=== PATIENT | female | born 1980 | race Caucasian/White ===

== ENCOUNTER 2020-02-07 09:02 | Outpatient (CLI) | payer BC ==
[2020-02-07 09:24] LABS: BASOPHILS # (AUTO) 0.1 10^3/uL (0.0-0.1); BASOPHILS % (AUTO) 0.9 %; EOSINOPHILS # (AUTO) 0.1 10^3/uL (0.0-0.7); EOSINOPHILS % (AUTO) 1.9 %; HGB - HEMOGLOBIN 13.4 g/dL (12.0-16.0); LYMPHOCYTES # (AUTO) 1.3 10^3/uL (1.5-3.5); LYMPHOCYTES % (AUTO) 24.9 %; MEAN CORPUSCULAR HEMOGLOBIN 30.7 pg (27.0-31.0); MEAN CORPUSCULAR HGB CONC 33.1 g/dL (32.0-36.0); MEAN CORPUSCULAR VOLUME 92.9 fL (81.0-99.0); MEAN PLATELET VOLUME 10.4 fL (7.9-10.8); MONOCYTES # (AUTO) 0.4 10^3/uL (0.0-1.0); MONOCYTES % (AUTO) 6.7 %; NEUTROPHILS # (AUTO) 3.5 10^3/uL (1.5-6.6); NEUTROPHILS % (AUTO) 65.4 %; PLT - PLATELET COUNT 273 10^3/uL (130-450); RED BLOOD COUNT 4.36 10^6/uL (4.20-5.40); RED CELL DISTRIBUTION WIDTH 12.6 % (12.0-15.0); WHITE BLOOD COUNT 5.4 x10^3/uL (4.8-10.8)
--- NOTE | 2020-02-07 09:50 | XRAY Report ---
PROCEDURE: Hand 2 View BILAT INDICATIONS: LAB,JOINT PAIN,HAND TECHNIQUE: 2 views of the hand(s) bilaterally were acquired. COMPARISON: None. FINDINGS: Bones: No fractures or dislocations. No suspicious bony lesions. Soft tissues: No suspicious soft tissue calcifications. IMPRESSION: No trauma found. No appreciable degenerative osteoarthritis or erosive arthritides is found. Reviewed by: Edgar Montgomery MD on 02/07/2020 9:49 AM PDT Approved by: Edgar Montgomery MD on 02/07/2020 9:49 AM PDT Station ID: [id number]
[2020-02-07 12:01] LABS: HEMOGLOBIN A1c% 5.4 % (4.27-6.07)
[2020-02-07 16:57] LABS: RHEUMATOID FACTOR NEGATIVE (Negative)
== END 2020-02-07 09:03 | disposition home or self-care (01) ==
LOC: LAB 09:02 → DI 09:03
PROVIDERS: ATTEND Physician Assistant
DX: M79.642 Pain in left hand (principal); M79.641 Pain in right hand; E55.9 Vitamin D deficiency, unspecified; R53.83 Other fatigue; Z86.32 Personal history of gestational diabetes
CPT/HCPCS: 36415; 82306; 83036; 84443; 85025; 85651; 86038; 86430

== ENCOUNTER 2021-03-11 08:56 | Outpatient (CLI) | payer OTHER ==
[2021-03-11 09:15] LABS: BASOPHILS # (AUTO) 0.1 10^3/uL (0.0-0.1); EOSINOPHILS # (AUTO) 0.2 10^3/uL (0.0-0.7); EOSINOPHILS % (AUTO) 2.9 %; HCT - HEMATOCRIT 40.8 % (37.0-47.0); HGB - HEMOGLOBIN 13.6 g/dL (12.0-16.0); LYMPHOCYTES # (AUTO) 1.6 10^3/uL (1.5-3.5); MEAN CORPUSCULAR HEMOGLOBIN 30.9 pg (27.0-31.0); MEAN CORPUSCULAR HGB CONC 33.3 g/dL (32.0-36.0); MEAN CORPUSCULAR VOLUME 92.7 fL (81.0-99.0); MEAN PLATELET VOLUME 9.9 fL (7.9-10.8); MONOCYTES # (AUTO) 0.4 10^3/uL (0.0-1.0); MONOCYTES % (AUTO) 6.9 %; NEUTROPHILS # (AUTO) 3.1 10^3/uL (1.5-6.6); NEUTROPHILS % (AUTO) 58.8 %; PLT - PLATELET COUNT 272 10^3/uL (130-450); RED CELL DISTRIBUTION WIDTH 12.6 % (12.0-15.0); WHITE BLOOD COUNT 5.2 x10^3/uL (4.8-10.8)
[2021-03-11 09:39] LABS: ALBUMIN 4.3 g/dL (3.2-5.5); ALBUMIN/GLOBULIN RATIO 1.4 (1.0-2.2); ALKALINE PHOSPHATASE 56 IU/L (42-121); ALT ALANINE AMINOTRANSFERASE 20 IU/L (10-60); AST ASPARTATE AMINOTRANSFERASE 14 IU/L (10-42); BUN - BLOOD UREA NITROGEN 15 mg/dL (6-20); CALCIUM 9.2 mg/dL (8.5-10.3); CARBON DIOXIDE - CO2 28 mmol/L (21-32); CHLORIDE 102 mmol/L (101-111); CHOL/HDL RATIO 3.8 (<4.4); CHOLESTEROL 218 mg/dL; CREATININE 0.7 mg/dL (0.4-1.0); GFR - MDRD 93 (>89); GLUCOSE 114 mg/dL (70-100); HDL CHOLESTEROL 57 mg/dL; LDL CHOLESTEROL,CALCULATED 137 mg/dL; LDL/HDL RATIO 2.4 (<4.4); POTASSIUM 4.1 mmol/L (3.5-5.0); SODIUM 140 mmol/L (135-145); TOTAL PROTEIN 7.3 g/dL (6.7-8.2); TRIGLYCERIDES 118 mg/dL; VLDL CHOLESTEROL 24 mg/dL
[2021-03-11 09:51] LABS: THYROID STIMULATING HORMONE 1.2 uIU/mL (0.34-5.60)
== END 2021-03-11 08:57 | disposition home or self-care (01) ==
LOC: LAB 08:56
PROVIDERS: ATTEND Physician Assistant Medical
DX: Z00.00 Encounter for general adult medical examination without abnormal findings (principal)
CPT/HCPCS: 36415; 80053; 80061; 83721; 84443; 85025

== ENCOUNTER 2021-04-14 09:56 | Outpatient (CLI) | payer OTHER | END 2021-04-14 09:57 | disposition critical access hospital (66) | LOC: EMS 09:56 | DX: S99.912A Unspecified injury of left ankle, initial encounter (principal); S99.911A Unspecified injury of right ankle, initial encounter; W10.9XXA Fall (on) (from) unspecified stairs and steps, initial encounter; Y93.89 Activity, other specified; Y92.009 Unspecified place in unspecified non-institutional (private) residence as the place of occurrence of the external cause | CPT/HCPCS: A0425; A0427 ==

== ENCOUNTER 2021-04-14 10:10 | Emergency (ER) | payer OTHER ==
[2021-04-14] MEDS ORDERED: KETOROLAC 30 MG/ML VIAL IVP STA (10:28)
[2021-04-14] MEDS ORDERED: HYDROmorphone 1 MG/ML CARPUJECT IVP STA (10:28)
[2021-04-14] MEDS ORDERED: SODIUM CHLORIDE 0.9% 1,000 ML IV STA (10:28)
--- NOTE | 2021-04-14 10:29 | ED Physician Documentation ---
PD HPI LOWER EXT INJURY - Stated complaint Stated Complaint: ANKLE INJURY - Chief complaint Chief Complaint: Trauma Ext - History obtained from History obtained from: Patient, EMS - History of Present Illness PD HPI LOW EXT INJURY LOCATION: Right, Left, Ankle Type of injury: Twist (of right ankle as going down stairs. right ankle gave out and she then stepped hard to left ankle to catch herself, feeling twist and crack of left ankle. Unable to move it nor attempt standing due to marked pain.) Where injury occurred: Home Timing - onset: How many minutes ago (30) Timing - details: Abrupt onset, Still present Worsened by: Moving, Palpating Associated symptoms: Swelling (around left ankle mainly. Minimally anterolateral proximal foot on right.). No: Weakness, Numbness Contributing factors: No: Prior ortho surgery Similar symptoms before: Has not had sx before Recently seen: Not recently seen Review of Systems Constitutional: reports: Other (last meal last evening; had sips of cider this morning.). denies: Fever, Chills Nose: denies: Rhinorrhea / runny nose, Congestion Throat: denies: Sore throat Cardiac: denies: Chest pain / pressure Respiratory: denies: Cough GI: denies: Abdominal Pain Skin: denies: Abrasion (s), Laceration (s) Musculoskeletal: denies: Neck pain, Back pain Neurologic: denies: Altered mental status, Headache, Head injury PD PAST MEDICAL HISTORY - Past Medical History Cardiovascular: None Respiratory: None Neuro: None Musculoskeletal: None - Present Medications Home Medications: Ambulatory Orders Medication Instructions Recorded Confirmed HYDROcod/ACETAM 5/325 [Loyall 5/325] 1 ea PO Q6H PRN #18 tablet 04/14/21 Ibuprofen [Motrin] 600 mg PO TID PRN #25 tab 04/14/21 - Allergies Allergies/Adverse Reactions: Allergies Allergy/AdvReac Type Severity Reaction Status Date / Time Sulfa (Sulfonamide Allergy Rash Verified 04/14/21 10:22 Antibiotics) PD ED PE NORMAL - Vitals Vital signs reviewed: Yes - General General: Alert and oriented X 3, Well developed/nourished, Other (appears in considerable pain from left ankle mainly. Both ankles are in vacuum splints. ) - HEENT HEENT: Atraumatic, Dentition benign, Other (able to open mouth widely. ) - Neck Neck: Supple, no meningeal sign, No bony TTP - Cardiac Cardiac: RRR, No murmur - Respiratory Respiratory: Clear bilaterally, Other (no chestwall tenderness. ) - Abdomen Abdomen: Soft, Non tender - Back Back: No CVA TTP, No spinal TTP - Derm Derm: Normal color, Warm and dry - Extremities Extremities: Other (right ankle with some swelling and mild bruising anterolateral proximal foot c/w ATFL ligament. No gross laxity with inversion stress. Malleoli not tender. Left ankle with deformity and swelling at ankle. Tender both sides. Foot is pointed laterally compared to knee direction. Palpable DP pulse.) - Neuro Neuro: Alert and oriented X 3, No motor deficit, No sensory deficit, Normal speech, Other (good cap refill in toes. ) Results - Vitals Vitals: Vital Signs - 24 hr 04/14/21 04/14/21 04/14/21 10:11 10:36 10:39 Temperature 36.9 C Heart Rate 86 92 93 Respiratory 16 18 22 Rate Blood Pressure 138/95 H 127/73 127/73 O2 Saturation 98 94 99 04/14/21 04/14/21 04/14/21 11:19 11:25 11:29 Temperature Heart Rate 85 97 87 Respiratory 13 14 Rate Blood Pressure 145/80 H O2 Saturation 100 04/14/21 04/14/21 04/14/21 11:30 11:34 11:41 Temperature Heart Rate 92 78 74 Respiratory 15 16 15 Rate Blood Pressure 154/82 H 126/65 124/75 O2 Saturation 100 98 98 04/14/21 04/14/21 04/14/21 11:52 11:56 12:02 Temperature Heart Rate 81 82 89 Respiratory 13 9 L 13 Rate Blood Pressure 124/75 129/71 118/70 O2 Saturation 100 98 99 04/14/21 04/14/21 12:16 12:33 Temperature Heart Rate 85 95 Respiratory 17 16 Rate Blood Pressure 118/70 136/79 H O2 Saturation 100 Oxygen O2 Source Room air - Rads (name of study) right ankle Radiology: Prelim report reviewed ( no fractures), See rad report left ankle Radiology: Prelim report reviewed (distal fibular and medial malleolar fractures with posterolateral dislocation. ), See rad report Procedures - Splint (location) left ankle Splint applied by: Physician Type of splint: Fiberglass, Posterior, Stirrup Other: Patient tolerated well, No complications, Neurovascular intact, Good alignment, Crutches provided - Reduction Body part reduced: Left, Ankle Fracture or dislocation: Fracture dislocation Anesthesia: Dilaudid, Other (sedation with propfol) Reduction aftercare: NV intact, Xray confirms reduction, Alignment improved, Splint applied, Crutches, Patient tolerated well - Procedural sedation Sedation prep: Informed consent, Time out completed, Last meal (last evening), PE performed, ASA 1 - healthy, IV O2 monitor, ET CO2 monitor, RT present Sedation Medications: propofol Mallampati classification: I Patient status during sedation: Responds to tactile Sedation recovery: Recovered uneventfully, Back to baseline Time in sedation (Minutes): 12 PD MEDICAL DECISION MAKING - ED course Complexity details: reviewed results, re-evaluated patient (she is feeling so much better with ankle reduced and splinted. ), considered differential (right ankle seems sprain. Left ankle obvious fracture/dislocation. Provided IV pain meds pending xray and set up for procedural sedation. ), d/w patient Departure - Departure Disposition: 01 Home, Self Care Clinical Impression: Right ankle sprain Qualifiers: Encounter type: initial encounter Involved ligament of ankle: anterior talofibular ligament Qualified Code(s): S93.491A - Sprain of other ligament of right ankle, initial encounter Closed bimalleolar fracture of left ankle Qualifiers: Encounter type: initial encounter Qualified Code(s): S82.842A - Displaced bimalleolar fracture of left lower leg, initial encounter for closed fracture Condition: Stable Record reviewed to determine appropriate education?: Yes Instructions: ED Fx Ankle General Follow-Up: Albert Polk MD [Provider Admit Priv/Credential] - Flores Lee PA-C [Primary Care Provider] - Prescriptions: Ibuprofen [Motrin] 600 mg PO TID PRN #25 tab PRN Reason: Pain HYDROcod/ACETAM 5/325 [Loyall 5/325] 1 ea PO Q6H PRN #18 tablet PRN Reason: Pain Comments: Use the Aircast for support of the right ankle to protect the ligaments that you sprained. You will need to be on it some since you will be able to weight-bear on the left ankle and leg due to the fractures. Keep the splint in place. Ice elevate and rest the left ankle to reduce swelling. Call the orthopedic office tomorrow for a follow-up appointment the end of this week or early next week for reevaluation of the bimalleolar fracture. This may need surgical stabilization beyond just the splint or cast. You need to discuss this with the orthopedist. Typically they will do this for this type of fracture after the swelling is gone down. Use ibuprofen 3 times a day with food for inflammation and pain. Add Tylenol every 4-6 hours if needed for pain or hydrocodone if needed for worse pain. Crutches for nonweightbearing of the left ankle. Consider picking up a knee scooter as a alternative way for getting around with less use of the hands and wrists. Obviously you need crutches for stairs etc. I transmitted your prescription to [facility] pharmacy in [place]. I am prescribing a short course of narcotic pain medication for you. These are potentially dangerous and addictive medications that should be used carefully. These medications may constipate you. Take an [id number]-ges-[id number] stool softener such as docusate twice daily with plenty of water while taking these medications. If you go 24 hours without a bowel movement, take fdnp-vam-ichhbvt MiraLAX, per package instructions. Do not drink or drive while taking these medications. If you received narcotic or sedating medications while in the emergency department do not drive for 24 hours. Store this medication in a safe, secure place and out of reach of children. It is a violation of federal law to give or sell this medication to another person or to use in a manner other than prescribed. The ED will not refill narcotic prescriptions, including prescriptions lost or stolen. You can dispose of unwanted medications at the [facility]'s office or at several pharmacies such as [facility]. Discharge Date/Time: 04/14/21 12:54
[2021-04-14] MEDS ORDERED: PROPOFOL 200 MG/20 ML VIAL IVP STA (11:07)
[2021-04-14] MEDS ORDERED: HYDROmorphone 0.5 MG/0.5 ML SYRINGE IVP STA (11:07)
--- NOTE | 2021-04-14 11:24 | XRAY Report ---
PROCEDURE: Ankle 3 View BILAT INDICATIONS: injury both ankles, left worse than right TECHNIQUE: 3 views of the ankle were acquired. COMPARISON: None FINDINGS: Bones: No fractures or dislocations. Ankle mortise is normally aligned. No suspicious bony lesions . Soft tissues: No tibiotalar joint effusion. Achilles tendon appears normal. IMPRESSION: No acute fracture. No osseous lesion. If symptoms and/or clinical suspicion for patholog y continue, further assessment with repeat plain films, or advanced imaging (e.g., CT, MRI, or bone s can) is recommended for further assessment. Reviewed by: Josie Valadez MD on 04/14/2021 10:23 AM [facility] Approved by: Josie Valadez MD on 04/14/2021 10:23 AM [facility] Station ID: [id number]
--- NOTE | 2021-04-14 12:00 | XRAY Report ---
PROCEDURE: Ankle 2 View LT INDICATIONS: post reduction TECHNIQUE: 2 views of the ankle were acquired. COMPARISON: 04/14/2021 plain films FINDINGS: Bones: There has been reduction of the previously seen trimalleolar left ankle fracture dislocation. No suspicious bony lesions. Soft tissues: No tibiotalar joint effusion. Achilles tendon appears normal. IMPRESSION: Reduction of ankle fracture dislocation. Reviewed by: Josie Valadez MD on 04/14/2021 10:58 AM [facility] Approved by: Josie Valadez MD on 04/14/2021 10:58 AM [facility] Station ID: [id number]
[2021-04-14 12:34] VITALS: BP 136/79
== END 2021-04-14 12:54 | disposition home or self-care (01) ==
LOC: EDUNIT# → ED 10:10
DX: S82.842A Displaced bimalleolar fracture of left lower leg, initial encounter for closed fracture (principal); S93.491A Sprain of other ligament of right ankle, initial encounter; W10.9XXA Fall (on) (from) unspecified stairs and steps, initial encounter; X50.1XXA Overexertion from prolonged static or awkward postures, initial encounter; Y93.89 Activity, other specified; Y92.009 Unspecified place in unspecified non-institutional (private) residence as the place of occurrence of the external cause
CPT/HCPCS: 27810; 73600; 73610; 96374; 96375; 96376; 99152; 99284; 99285; J1170; 94770

== ENCOUNTER 2021-10-30 08:00 | Outpatient (CLI) | payer OTHER | END 2021-10-30 23:59 | disposition home or self-care (01) | LOC: LAB.N 08:00 | PROVIDERS: ATTEND Physician Assistant Medical | DX: J20.9 Acute bronchitis, unspecified (principal); Z20.822 Contact with and (suspected) exposure to COVID-19 ==

== ENCOUNTER 2023-05-27 07:37 | Outpatient (CLI) | payer OTHER ==
[2023-05-27 08:11] LABS: BASOPHILS # (AUTO) 0.1 10^3/uL (0.0-0.1); BASOPHILS % (AUTO) 0.9 %; EOSINOPHILS # (AUTO) 0.1 10^3/uL (0.0-0.7); EOSINOPHILS % (AUTO) 2.1 %; HCT - HEMATOCRIT 42.2 % (37.0-47.0); HGB - HEMOGLOBIN 13.7 g/dL (12.0-16.0); LYMPHOCYTES # (AUTO) 1.6 10^3/uL (1.5-3.5); LYMPHOCYTES % (AUTO) 28.9 %; MEAN CORPUSCULAR HEMOGLOBIN 29.4 pg (27.0-31.0); MEAN CORPUSCULAR HGB CONC 32.5 g/dL (32.0-36.0); MEAN CORPUSCULAR VOLUME 90.6 fL (81.0-99.0); MEAN PLATELET VOLUME 10.2 fL (7.9-10.8); MONOCYTES # (AUTO) 0.4 10^3/uL (0.0-1.0); MONOCYTES % (AUTO) 6.2 %; NEUTROPHILS # (AUTO) 3.5 10^3/uL (1.5-6.6); NEUTROPHILS % (AUTO) 61.7 %; PLT - PLATELET COUNT 317 10^3/uL (130-450); RED BLOOD COUNT 4.66 10^6/uL (4.20-5.40); RED CELL DISTRIBUTION WIDTH 12.6 % (12.0-15.0); WHITE BLOOD COUNT 5.6 x10^3/uL (4.8-10.8)
[2023-05-27 08:24] LABS: ALBUMIN 4.5 g/dL (3.2-5.5); ALBUMIN/GLOBULIN RATIO 1.4 (1.0-2.2); ALKALINE PHOSPHATASE 52 IU/L (42-121); ALT ALANINE AMINOTRANSFERASE 11 IU/L (10-60); AST ASPARTATE AMINOTRANSFERASE 10 IU/L (10-42); BUN - BLOOD UREA NITROGEN 14 mg/dL (6-20); CALCIUM 9.3 mg/dL (8.5-10.3); CARBON DIOXIDE - CO2 28 mmol/L (21-32); CHLORIDE 102 mmol/L (101-111); CHOL/HDL RATIO 4.3 (<4.4); CHOLESTEROL 213 mg/dL; CREATININE 0.7 mg/dL (0.6-1.3); CRP - C-REACTIVE PROTEIN < 0.5 mg/dL (<0.5); GFR - MDRD 92 (>89); GLUCOSE 111 mg/dL (74-104); HDL CHOLESTEROL 49 mg/dL; LDL CHOLESTEROL,CALCULATED 133 mg/dL; LDL/HDL RATIO 2.7 (<4.4); POTASSIUM 3.7 mmol/L (3.5-4.5); SODIUM 137 mmol/L (135-145); TOTAL PROTEIN 7.7 g/dL (6.4-8.9); TRIGLYCERIDES 157 mg/dL (48-352); VLDL CHOLESTEROL 31 mg/dL
[2023-05-27 08:40] LABS: THYROID STIMULATING HORMONE 2.19 uIU/mL (0.34-5.60)
[2023-05-27 09:01] LABS: RHEUMATOID FACTOR NEGATIVE (Negative)
[2023-05-28 07:10] LABS: VITAMIN D 25-HYDROXY 65.7 ng/mL (30.0-100.0)
[2023-05-28 18:08] LABS: ANTI-DNA (DS) AB QN 1 IU/mL (0-9); ENDOMYSIAL IGA Negative (Negative)
[2023-05-28 22:08] LABS: T-TRANSGLUTAMINASE (TTG) IGG <2 U/mL (0-5)
[2023-05-29 16:18] LABS: ANTINUCLEAR ANTIBODIES IFA Positive (.)
== END 2023-05-27 07:38 | disposition home or self-care (01) ==
LOC: LAB 07:37
PROVIDERS: ATTEND Physician Assistant Medical
DX: Z00.00 Encounter for general adult medical examination without abnormal findings (principal); E55.9 Vitamin D deficiency, unspecified; R53.83 Other fatigue; K52.9 Noninfective gastroenteritis and colitis, unspecified; M25.50 Pain in unspecified joint
CPT/HCPCS: 36415; 80053; 80061; 82306; 82607; 83721; 84443; 85025; 85651; 86038; 86140; 86225; 86231; 86364; 86430

== ENCOUNTER 2023-12-18 10:29 | Outpatient (CLI) | payer OTHER ==
--- NOTE | 2023-12-21 08:27 | Ultrasound Report ---
LIMITED ULTRASOUND OF RIGHT BREAST AND AXILLA: 12/18/2023 CLINICAL: Palpable right breast lump. Comparison is made to exam dated: 12/18/2023 mammogram - [facility]. Color flow ultrasound of the right breast 9-10 o'clock, and axilla regions was performed. Casas scale images of the real-time examination were reviewed. There is a 2 cm x 3.1 cm x 2.4 cm irregular mass with a spiculated margin in the right breast at 9 o' clock middle depth 7 cm from the nipple. This irregular mass is hypoechoic with posterior acoustic s hadowing. This correlates as palpated, to the reported pain, and with mammography findings. There a re related calcifications. Color flow imaging demonstrates that there is vascularity present. There also is a 2 cm x 2.5 cm x 1.7 cm irregular mass with an angular margin in the right breast at 1 0 o'clock middle depth 2 cm from the nipple. This irregular mass is hypoechoic with posterior acoust ic shadowing. This correlates with mammography findings. Color flow imaging demonstrates that there is no vascularity present. This mass may be continuous with the 9 o'clock mass. Additionally, there is a 0.5 cm x 1.5 cm lymph node with eccentric cortical thickening in the right a xillary tail 12 cm from the nipple. IMPRESSION: HIGHLY SUGGESTIVE OF MALIGNANCY The 2 cm x 3.1 cm x 2.4 cm irregular mass in the right breast at 9 o'clock middle depth is highly sug gestive of malignancy. An ultrasound guided biopsy is recommended. The 2 cm x 2.5 cm x 1.7 cm irregular mass in the right breast at 10 o'clock middle depth is highly victoria ggestive of malignancy. This mass may be continuous with the 9 o'clock mass. An ultrasound guided bi opsy is recommended. The 0.5 cm x 1.5 cm lymph node with eccentric cortical thickening in the right axillary tail is suspi cious of malignancy. An ultrasound guided biopsy is recommended. The findings and recommendations were discussed with the patient in person at the time of the exam. If biopsies are positive, consider breast MRI to evaluate the extent of disease. This exam was interpreted at Station ID: [id number]. Electronically Signed By: Dakotah Cruz M.D. ar/:12/18/2023 21:00:30 Ultrasound BI-RADS: 5 Highly suggestive of malignancy BI-RADS CATEGORY: (5) - 5 Biopsy [id number] Immediate follow-up LATERALITY: (R)
--- NOTE | 2023-12-21 08:27 | Mammography Report ---
BILATERAL DIGITAL DIAGNOSTIC MAMMOGRAM 3D/2D WITH SPOT COMPRESSION: 12/18/2023 CLINICAL: Baseline exam. Palpable right breast lump. No prior exams were available for comparison. Both breasts are heterogeneously dense, which may obscure small masses (category c / 51-75% glandular tissue). There is a 3 cm irregular mass with a spiculated margin and grouped heterogeneous calcifications in t he right breast at 9 o'clock middle depth. This correlates as palpated. There also is a 2.5 cm oval mass with a spiculated and indistinct margin in the right breast at 10 o' clock middle depth. This correlates as palpated. These masses may be contiguous. At least one thai tional smaller spiculated satellite lesion is present. No other significant masses, calcifications, or other findings are seen in either breast. IMPRESSION: INCOMPLETE: NEEDS ADDITIONAL IMAGING EVALUATION The 3 cm irregular mass in the right breast at 9 o'clock middle depth is indeterminate. An ultrasoun d is recommended. The 2.5 cm oval mass in the right breast at 10 o'clock middle depth is indeterminate. An ultrasound is recommended. Based on the Tyrer Cuzick model (a risk assessment model) the patient's lifetime risk is 14.1% and he r 10 year risk is 2.1%. According to the ACR, ACS, and NCCN guidelines, an annual breast MRI exam shaila ng with mammogram is recommended if the patient's lifetime risk is 20% or greater. This exam was interpreted at Station ID: [id number]. NOTE: For mammograms, a report in lay terms will be sent to the patient. Approximately 15% of breast malignancies will not be visualized mammographically. In the management of a palpable breast mass, a negative mammogram must not discourage biopsy of a clinically suspicious lesion. Electronically Signed By: Dakotah Cruz M.D. ar/:12/18/2023 20:52:57 ACR BI-RADS Category 0: Incomplete 3340F PARENCHYMAL PATTERN: (D) - The breast(s) demonstrate(s) heterogeneously dense fibroglandular parenchy ma. BI-RADS CATEGORY: (0) - 0 Ultrasound [id number] Immediate follow-up LATERALITY: (R)
== END 2023-12-18 10:30 | disposition home or self-care (01) ==
LOC: DI 10:29
PROVIDERS: ATTEND Physician Assistant
DX: N63.15 Unspecified lump in the right breast, overlapping quadrants (principal); N63.11 Unspecified lump in the right breast, upper outer quadrant; R92.323 Mammographic fibroglandular density, bilateral breasts

== ENCOUNTER 2024-01-22 10:05 | Outpatient (CLI) | payer OTHER ==
[2024-01-22] MEDS ORDERED: LIDOCAINE-MPF 1% 5 ML VIAL ONE (10:32)
[2024-01-22] MEDS ORDERED: LIDOCAINE 1%-EPI 1:100000 20 ML MDV ONE (10:33)
[2024-01-22] MEDS: LIDOCAINE-MPF 1% 5 ML VIAL TD ONE (12:58)
[2024-01-22] MEDS: LIDOCAINE 1%-EPI 1:100000 20 ML MDV SUBQ ONE (12:59)
--- NOTE | 2024-01-25 13:10 | Mammography Report ---
UNILATERAL RIGHT DIGITAL DIAGNOSTIC MAMMOGRAM WITH AXILLARY TAIL - RIGHT BREAST POST-PROCEDURE IMAGIN G FOR MARKER PLACEMENT: 01/22/2024 CLINICAL: Post right breast ultrasound biopsy clip placement imaging. Three sites. Comparison is made to exam dated: 12/18/2023 mammogram - [facility]. The breasts are heterogeneously dense, which may obscure small masses (category c / 51-75% glandular tissue). There is a marker clip in the appropriate position in the right breast at 11 o'clock anterior depth. This marker clip placement is at the biopsy site. There also is a marker clip in the appropriate position in the right breast at 11 o'clock posterior d epth. This marker clip placement is at the biopsy site. Additionally, there is a marker clip in the appropriate position in the right axillary tail. This ma rker clip placement is at the biopsy site. IMPRESSION: POST PROCEDURE MAMMOGRAM FOR MARKER PLACEMENT There was a successful marker clip placement in the right breast at 11 o'clock anterior depth. There was a successful marker clip placement in the right breast at 11 o'clock posterior depth. There was a successful marker clip placement in the right axillary tail. Based on the Tyrer Cuzick model (a risk assessment model) the patient's lifetime risk is 14.6% and he r 10 year risk is 2.2%. According to the ACR, ACS, and NCCN guidelines, an annual breast MRI exam shaila ng with mammogram is recommended if the patient's lifetime risk is 20% or greater. This exam was interpreted at Station ID: [id number]. NOTE: For mammograms, a report in lay terms will be sent to the patient. Approximately 15% of breast malignancies will not be visualized mammographically. In the management of a palpable breast mass, a negative mammogram must not discourage biopsy of a clinically suspicious lesion. Electronically Signed By: Ben handley/penrad:01/22/2024 13:20:07 ACR BI-RADS Category Post-Procedure Mammogram for Marker Placement PARENCHYMAL PATTERN: (D) - The breast(s) demonstrate(s) heterogeneously dense fibroglandular parenchy ma. BI-RADS CATEGORY: () - RECOMMENDATION: (ADDMAM) - Recommend additional mammographic views. recall n/a LATERALITY: (B)
--- NOTE | 2024-01-28 10:52 | Ultrasound Report ---
ULTRASOUND GUIDED BIOPSY RIGHT BREAST WITH MARKING DEVICE INSERTED: 01/22/2024 CLINICAL: Right Axillary tail BX of LN. PATIENT CONSENT: Risks (minor bleeding, infection, vasovagal reaction and repeat procedure), benefits and alternatives were explained to the patient and written informed consent was obtained. Correlation is made to exams dated: 12/18/2023 ultrasound and 12/18/2023 mammogram - [facility]. An ultrasound guided biopsy using real-time ultrasound was performed for the lymph node located in th e right axillary tail. This was described on the previous ultrasound report. The skin was prepped i n the usual manner. Local anesthetic was administered to the access site. A small incision was made in the breast. The abnormality was approached from the caudocranial aspect. A biopsy needle was pl aced adjacent to the abnormality under ultrasound guidance. Once the needle was documented to be in the correct location, four specimens were obtained using a BARD biopsy device. The patient received additional local anesthetic during the procedure. A clip was inserted into the biopsy cavity. A ski n adhesive was applied to the access site. Post procedure imaging demonstrates the location device a t the targeted area. The specimens were sent to the laboratory for pathological analysis. IMPRESSION: ULTRASOUND GUIDED BIOPSY MALIGNANT Ultrasound guided biopsy of the lymph node in the right axillary tail was successful with no apparent post procedure complications. 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 Pathology results are concordant with imaging findings. Oncologic/surgical consultation recommended. This exam was interpreted at Station ID: [id number]. Ben handley,/:01/28/2024 09:03:07 BI-RADS CATEGORY: () - Unspecified - other recall n/a LATERALITY: (B)
--- NOTE | 2024-01-28 10:52 | Ultrasound Report ---
ULTRASOUND GUIDED BIOPSY RIGHT BREAST USING VACUUM DEVICE WITH MARKING DEVICE INSERTED AND POST DIGIT AL MAMMOGRAPHIC IMAGIN01/22/2024 CLINICAL: Right breast Biopsy of lesion. PATIENT CONSENT: Risks (minor bleeding, infection, vasovagal reaction and repeat procedure), benefits and alternatives were explained to the patient and written informed consent was obtained. Correlation is made to exams dated: 12/18/2023 ultrasound and 12/18/2023 mammogram - [facility]. An ultrasound guided biopsy using real-time ultrasound was performed for the irregular shaped area of architectural distortion located in the right breast at 9 o'clock posterior depth. This was describ ed on the previous ultrasound report. The skin was prepped in the usual manner. Local anesthetic wa s administered to the access site. A small incision was made in the breast. The abnormality was yoan roached from the lateral aspect. A biopsy needle was placed adjacent to the abnormality under ultras ound guidance. Once the needle was documented to be in the correct location, a specimen was obtained using the Mammotome biopsy system. The patient received additional local anesthetic during the proc edure. A clip was inserted into the biopsy cavity. A skin adhesive was applied to the access site. Post procedure digital mammographic imaging was obtained. The specimen was sent to the laboratory f or pathological analysis. IMPRESSION: ULTRASOUND GUIDED BIOPSY MALIGNANT Ultrasound guided biopsy of the area of architectural distortion in the right breast at 9 o'clock pos terior depth was successful with no apparent post procedure complications. 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 Pathology results are concordant w ith imaging findings. Oncologic/surgical consultation recommended. This exam was interpreted at Station ID: [id number]. Ben handley,lc/:01/28/2024 09:01:27 BI-RADS CATEGORY: () - Unspecified - other recall n/a LATERALITY: (B)
--- NOTE | 2024-01-28 10:52 | Ultrasound Report ---
ULTRASOUND GUIDED BIOPSY RIGHT BREAST USING VACUUM DEVICE WITH MARKING DEVICE INSERTED AND POST DIGIT AL MAMMOGRAPHIC IMAGIN01/22/2024 CLINICAL: Right breast BX of additional lesion. PATIENT CONSENT: Risks (minor bleeding, infection, vasovagal reaction and repeat procedure), benefits and alternatives were explained to the patient and written informed consent was obtained. Correlation is made to exams dated: 12/18/2023 ultrasound and 12/18/2023 mammogram - [facility]. An ultrasound guided biopsy using real-time ultrasound was performed for the irregular shaped area of architectural distortion located in the right breast at 11 o'clock anterior depth. This was describ ed on the previous ultrasound report. The skin was prepped in the usual manner. The abnormality was approached from the lateral aspect. A biopsy needle was placed adjacent to the abnormality under ul trasound guidance. Once the needle was documented to be in the correct location, four passes were ma de using the Mammotome biopsy system. A clip was inserted into the biopsy cavity. Post procedure di gital mammographic imaging was obtained. The specimens were sent to the laboratory for pathological analysis. IMPRESSION: ULTRASOUND GUIDED BIOPSY MALIGNANT Ultrasound guided biopsy of the area of architectural distortion in the right breast at 11 o'clock an terior depth was successful with no apparent post procedure complications. 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 Pathology results are concordant with imaging findings. Oncolo gic/surgical consultation recommended. This exam was interpreted at Station ID: [id number]. Ben handley,lc/:01/28/2024 09:02:14 BI-RADS CATEGORY: () - Unspecified - other recall n/a LATERALITY: (B)
== END 2024-01-22 10:06 | disposition home or self-care (01) ==
LOC: DI 10:05
PROVIDERS: ATTEND Physician Assistant
DX: C50.811 Malignant neoplasm of overlapping sites of right female breast (principal); C50.411 Malignant neoplasm of upper-outer quadrant of right female breast; C77.3 Secondary and unspecified malignant neoplasm of axilla and upper limb lymph nodes; Z17.0 Estrogen receptor positive status [ER+]
CPT/HCPCS: 19083; 19084; 38505